=== PATIENT | female | born 1990 | race Hispanic/Latino ===

== ENCOUNTER 2022-06-21 09:04 | Emergency (ER) | payer SELFPAY ==
[~2022-06-21] VITALS: Ht 157.5 cm; Wt 68.0 kg
[2022-06-21] MEDS ORDERED: KETOROLAC TROMETHAMINE 30 MG/ML VIAL IM STA (09:25)
[2022-06-21] MEDS ORDERED: DEXAMETHASONE 4 MG TAB PO STA (11:45)
== END 2022-06-21 12:17 | disposition home or self-care (01) ==
LOC: ER 09:11
DX: R11.2 Nausea with vomiting, unspecified (principal); J06.9 Acute upper respiratory infection, unspecified; R51.9 Headache, unspecified; F32.A Depression, unspecified; Z20.822 Contact with and (suspected) exposure to COVID-19
CPT/HCPCS: 83518; 87070; 99283; J1885; J8540; U0002